=== PATIENT | male | born 1985 | race American Indian/Alaskan Native ===

== ENCOUNTER 2016-09-03 22:01 | Emergency (ER) | payer OTHER ==
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
[2016-09-04 02:10] VITALS: BP 126/82
[2016-09-04] MEDS ORDERED: NORCO 10/325 PO ONE (02:48)
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
--- NOTE | 2016-09-04 08:13 | XRay Report ---
LEFT ANKLE: The bones are well mineralized with normal bony contours and joint alignment. No fractures or destructive changes are noted and the adjacent soft tissues are normal. IMPRESSION: Normal study.
--- NOTE | 2016-09-04 08:14 | XRay Report ---
LEFT WRIST: Routine views demonstrate the carpal bones to be well mineralized with well preserved bony mineralization and interosseous joint spaces. The carpal and adjacent articular bones have normal contours. The surrounding soft tissues are unremarkable. IMPRESSION: Normal study.
--- NOTE | 2016-09-04 08:14 | XRay Report ---
LEFT FEMUR: AP and lateral views of the femur demonstrate normal mineralization and contours for this patient's age. No destructive changes are noted and the adjacent soft tissues are normal. IMPRESSION: Normal left femur.
== END 2016-09-04 04:56 | disposition home or self-care (01) ==
LOC: ED 22:01
DX: S70.12XA Contusion of left thigh, initial encounter (principal); V43.92XA Unspecified car occupant injured in collision with other type car in traffic accident, initial encounter; Y93.89 Activity, other specified; Y99.9 Unspecified external cause status; Y92.410 Unspecified street and highway as the place of occurrence of the external cause
CPT/HCPCS: 70450; 72125

== ENCOUNTER 2019-01-20 15:15 | Emergency (ER) | payer SELFPAY ==
[2019-01-20 15:28] VITALS: BP 138/89
--- NOTE | 2019-01-20 15:29 | Emergency Department Report ---
Chief Complaint: Urogenital-Male Stated Complaint: STD CHECK UP - HPI History of Present Illness: 33 y/o male comes in for wanting a STD check. Patient has no abd pain no penile discharge no fever. - ROS Review of Systems: No abd pain no penile discharge no fever. - Exam Physical Exam: AXO times 3 NAD MSE screening note: Focused history and physical exam performed. Due to findings the following was ordered: Patient referred to Health department. ED Disposition for MSE Disposition: MED SCREENING EXAM-LEFT Condition: Stable
== END 2019-01-20 16:00 | disposition left against medical advice (07) ==
LOC: ED 15:15
DX: Z11.3 Encounter for screening for infections with a predominantly sexual mode of transmission (principal); Z53.21 Procedure and treatment not carried out due to patient leaving prior to being seen by health care provider

== ENCOUNTER 2019-03-17 13:15 | Emergency (ER) | payer SELFPAY ==
[2019-03-17 13:22] VITALS: BP 129/87
[2019-03-17] MEDS ORDERED: BOOSTRIX IM ONE (13:23)
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
[2019-03-17] MEDS ORDERED: NACL 0.9% IR ONE (13:36)
[2019-03-17] MEDS ORDERED: IBUPROFEN PO ONE (13:36)
[2019-03-17] MEDS ORDERED: TRIPLE ANTIBIOTIC TP ONE (13:36)
[2019-03-17] MEDS ORDERED: XYLOCAINE 1% 20 mL INFILTRATI ONE (13:36)
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
== END 2019-03-17 15:09 | disposition home or self-care (01) ==
LOC: ED 13:15
DX: S61.411A Laceration without foreign body of right hand, initial encounter (principal); J45.909 Unspecified asthma, uncomplicated; W26.0XXA Contact with knife, initial encounter; Y93.89 Activity, other specified; Y92.89 Other specified places as the place of occurrence of the external cause; Y99.8 Other external cause status
CPT/HCPCS: 90471; 90715; A6250

== ENCOUNTER 2019-03-26 12:08 | Emergency (ER) | payer SELFPAY ==
--- NOTE | 2019-03-26 12:16 | Event Note ---
ED Screening Note Date of service: 03/26/19 Time: 12:15 ED Screening Note: This is a 34 y.o. M. that presents to the ER for suture removal to right posterior hand. Patient reports sutures placed 9 days ago. - foul smelling drainage, swelling, redness, or pain. This initial assessment/diagnostic orders/clinical plan/treatment(s) is/are subject to change based on patients health status, clinical progression and re- assessment by fellow clinical providers in the ED. Further treatment and workup at subsequent clinical providers discretion. Patient/guardian urged not to elope from the ED as their condition may be serious if not clinically assessed and managed. Initial orders include:
[2019-03-26 12:17] VITALS: BP 118/74
[2019-03-26] MEDS ORDERED: NEOMY 3.5 MG/BACIT 400 UNITS/POLY B 5000 UNITS/GM OINT PACKET TP ONE (12:17)
--- NOTE | 2019-03-26 12:33 | Emergency Department Report ---
Suture/Staple Removal - HPI Stated Complaint: SUTURE REMOVAL Time Seen by Provider: 03/26/19 12:13 When Sutures or Jose G Placed: 8-10 Days Ago Wound Location: right dorsal hand ED Review of Systems ROS: Stated complaint: SUTURE REMOVAL Other details as noted in HPI Constitutional: denies: chills, fever Respiratory: denies: cough, shortness of breath, wheezing Cardiovascular: denies: chest pain, palpitations Gastrointestinal: denies: abdominal pain, nausea, diarrhea Skin: lesions (sutures x 6 to dorsal right hand). denies: rash Neurological: denies: headache, weakness, paresthesias Psychiatric: denies: anxiety, depression ED Past Medical Hx - Past Medical History Previous Medical History?: Yes Hx Asthma: Yes Additional medical history: TB--WITH TX - Surgical History Past Surgical History?: No - Social History Smoking Status: Never Smoker Substance Use Type: None - Medications Home Medications: Home Medications Medication Instructions Recorded Confirmed Last Taken Type Acetaminophen/Codeine [Tylenol #3] 1 tab PO Q6H PRN #20 tab 10/16/15 Unknown Rx Cyclobenzaprine [Flexeril] 10 mg PO TID PRN #30 tablet 10/16/15 Unknown Rx Ibuprofen [Motrin] 600 mg PO Q8H PRN #50 tablet 10/16/15 Unknown Rx Baclofen 20 mg PO TID #15 tablet 09/04/16 Unknown Rx Diclofenac Sodium 75 mg PO BID #20 tablet.dr 09/04/16 Unknown Rx traMADol [Ultram] 50 mg PO Q6HR PRN #12 tablet 09/04/16 Unknown Rx Amoxicillin [Trimox CAP] 500 mg PO BID #20 capsule 03/17/19 Unknown Rx Suture Removal Exam - Exam General: Vital signs noted. No distress. Alert and acting appropriately. Wound: No Pathologic Erythema, No Tenderness, No Drainage, No Pus, No Wound Dehiscence Other Systems: All other systems reviewed and are unremarkable. ED Course Vital Signs 03/26/19 12:15 Temperature 97.9 F Pulse Rate 86 Respiratory 18 Rate Blood Pressure 118/74 [Right] O2 Sat by Pulse 95 Oximetry ED Recheck MDM - Differential Diagnosis Wound Recheck, Suture/Staple Removal - Medical Decision Making This is a 34-year-old male that presents to the ER for suture removal. Patient is stable and was examined by me. No signs of acute distress. Sutures x 6 removed with wire forceps, cleaned with normal saline, triple antibiotic applied, and bandaid. No signs of infection, negative swelling, surrounding cellulitis, drainage, edges are well approximated. Patient was instructed to Follow-up with a primary care doctor in 3-5 days or if symptoms worsen and continue return to emergency room as soon as possible. At time of discharge patient is stable. Patient agrees to discharge treatment plan of care. No further questions noted by the patient. Critical care attestation.: If time is entered above; I have spent that time in minutes in the direct care of this critically ill patient, excluding procedure time. ED Disposition Clinical Impression: Visit for suture removal Disposition: TO HOME OR SELFCARE Is pt being admited?: No Does the pt Need Aspirin: No Condition: Stable Instructions: Suture Removal (ED), Acute Wound Care (ED) Additional Instructions: Apply mederma or vitamin E to wound to minimize scaring. Apply triple antibiotic ointment for 3-5 days. Follow up with a Primary Care doctor or ER if fever, swelling, redness, or drainage from wound. Referrals: [facility] [Outside] - 3-5 Days [facility] [Outside] - 3-5 Days [facility] [Outside] - 3-5 Days Time of Disposition: 12:49
== END 2019-03-26 12:51 | disposition home or self-care (01) ==
LOC: ED 12:08
DX: S61.411D Laceration without foreign body of right hand, subsequent encounter (principal); J45.909 Unspecified asthma, uncomplicated; Y92.89 Other specified places as the place of occurrence of the external cause
CPT/HCPCS: A6250